=== PATIENT | male | born 1960 | race Caucasian/White ===

== ENCOUNTER → 2021-10-24 | Outpatient (CLI) | LOC: M SOG 14:04 | PROVIDERS: ATTEND Physician Assistant | DX: M79.642 Pain in left hand (principal); M79.641 Pain in right hand; M25.562 Pain in left knee; M25.561 Pain in right knee ==

== ENCOUNTER 2022-01-10 13:00 | Outpatient (RCR) | payer OTHER | END 2022-01-31 | LOC: M PT 13:00 | PROVIDERS: ATTEND Orthopaedic Surgery Hand Surgery | DX: M79.641 Pain in right hand (principal); M79.642 Pain in left hand ==